=== PATIENT | female | born 1975 | race Caucasian/White ===

== ENCOUNTER 2017-03-13 14:06 | Emergency (ER) | payer OTHER ==
[2017-03-13 14:14] VITALS: BP 142/79
--- NOTE | 2017-03-13 14:50 | UC ---
Dizzy HPI HPI Summary: The patient comes in today for: 1. Dizzy (vertigo): Onset: 6 days ago. She was sitting at her desk and had a sudden onset of vertigo. She went home and went home and to bed. Palliative/provocative: Head turning makes it worse. Quality: Vertigo. Region: Cochlear. Severity: At this time, restin/10 Time: Constant. Associated symptoms: Event: When she got up, she felt "a little dizzy," but she went to work. She did OK, but when to the gym in the evening. While at the gym, she did a squat and had a sudden onset of a turning sensation and nausea. She left to go home. She went to bed. Wednesday morning she went to work. She had a massive headache come on her at 10 AM. She took two extra strength Tylenol. The headache went away by the evening. She went to bed that evening. She felt "fine" and Wednesday. 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 She walked down the road to her friends home. On her way there, she had another onset of vertigo. When she go to her friends home, she received an electrolyte drink. She did not have nausea. She did not improve. She left to go home. As she was walking up the road, she felt that she could tip over. When she got home, she laid down. She came here for evaluation. Numbness or weakness: None. Tinnitus: She has had ringing in her left ear. Head injury: None. Hearing: OK. Nausea: Present. * - History Of Current Complaint Chief Complaint: UCDizziness Stated Complaint: DIZZY Time Seen by Provider: 03/13/17 14:42 Hx Obtained From: Patient Hx Last Menstrual Period: Ablasion - Allergies/Home Medications Allergies/Adverse Reactions: Allergies Allergy/AdvReac Type Severity Reaction Status Date / Time Penicillins Allergy Severe Rash And Verified 03/13/17 14:14 Itching Levofloxacin [From Levaquin] Allergy Intermediate arrythmia Verified 03/13/17 14 :14 Sulfa Antibiotics Allergy Intermediate Rash And Verified 03/13/17 14:[address] dye Allergy Severe Hives/Diff. Uncoded 03/13/17 14:14 Breathing/I tching Home Medications: Home Medications Desloratadine [Clarinex] 5 ml PO DAILY PRN 03/13/17 [History Confirmed 03/13/17] Levothyroxine TAB* [Synthroid 25 MCG TAB*] 25 mcg PO DAILY 03/13/17 [History Confirmed 03/13/17] PMH/Surg Hx/FS Hx/Imm Hx Previously Healthy: No - allergies/hives. Endocrine History: Thyroid Disease, Hypothyroidism - Surgical History Surgical History: Yes Surgery Procedure, Year, and Place: X 2 LT HIP AT 4 MO OLD - Family History Known Family History: Positive: Cardiac Disease, Other - Mother: Cushings syndrome, Gillespie's disease. - Social History Occupation: Employed Full-time Alcohol Use: Occasionally Substance Use Type: None Smoking Status (MU): Never Smoked Tobacco Review of Systems Constitutional: Negative Skin: Negative Eyes: Negative ENT: Negative Respiratory: Negative Cardiovascular: Negative Gastrointestinal: Negative Genitourinary: Negative All Other Systems Reviewed And Are Negative: Yes Physical Exam Triage Information Reviewed: Yes Appearance: Well-Appearing, No Pain Distress, Well-Nourished Vital Signs: Initial Vital Signs Temp 98.9 F 03/13/17 14:10 Pulse 91 03/13/17 14:10 Resp 16 03/13/17 14:10 BP 142/79 03/13/17 14:10 Pulse Ox 100 03/13/17 14:10 Vital Signs Reviewed: Yes Eyes: Positive: Conjunctiva Clear. Negative: Discharge ENT: Positive: Hearing grossly normal, Other: - Terell-Hallpike maneuver positive for the left ear. Small rotatory vertigo?. Negative: Pharyngeal erythema, Nasal congestion, Nasal drainage, TM bulging, TM dull, TM red, Tonsillar swelling, Tonsillar exudate Dental: Negative: Gross Decay/Caries @, Dental Fracture @ Neck: Positive: Supple, Nontender, No Lymphadenopathy. Negative: Nuchal Rigidity Respiratory: Positive: Lungs clear, No respiratory distress, No accessory muscle use. Negative: Crackles, Wheezing Cardiovascular: Positive: RRR, No Murmur Abdomen Description: Positive: Nontender, No Organomegaly, Soft. Negative: Distended, Guarding Musculoskeletal: Positive: Strength Intact, ROM Intact, No Edema Neurological: Positive: Alert, Muscle Tone Normal, Other: - Neurologic exam: Inspection: no fasciculations. Cranial nerves (II-XII): intact Muscular tone: No rigidity or cogwheeling. Reflexes: Biceps: 2+/2 x 2 Triceps: 2+/2 x 2 Brachioradialis: 2+/2 x 2 Patellar: 2+/2 x 2 Achilles: 2+/2 x 2 Coordination: Upper extremity: Alternating patting of thighs, alternating fingertips to thumb, index finger tip to nose--all normal. Lower extremity: Heel along anderson--normal. Strength: Upper extremity: appropriate for age and symmetrical Lower extremity: appropriate for age and symmetrical Gait: Regular: Normal. Heel to toe: Normal. Rhomberg: Normal. Sensation: No complaint of numbness. Psychological: Positive: Age Appropriate Behavior, Consolable Skin: Negative: rashes, breakdown Dizzy Course/Dx - Course Course Of Treatment: The patient had the Armando maneuver done and she felt like she was better. Time was taken on how we can continue to treat this and how to follow up. All questions answered. - Differential Dx/Diagnosis Provider Diagnoses: Benign Paroxysmal Positional Vertigo--left ear. Discharge - Discharge Plan Condition: Stable Disposition: HOME Patient Education Materials: Benign Paroxysmal Positional Vertigo (ED) Referrals: Melo Pearson, [Primary Care Provider] - 1 Week (Please see your primary care provider this coming week to see how well you are doing. If you continue to do well and the maneuvers we put you through resulted in resolution of your vertigo, you won't need this follow-up evaluation. However, if you continue to have problems and particularly if you get worse, please be seen again in the ER. )
== END 2017-03-13 15:52 | disposition home or self-care (01) ==
LOC: UCEAST 14:06
DX: H81.12 Benign paroxysmal vertigo, left ear (principal)
CPT/HCPCS: 93005; 99212; G0463